=== PATIENT | male | born 1945 | race Caucasian/White ===

== ENCOUNTER → 2021-07-04 10:13 | Outpatient (BNVA) | payer OTHER, MEDICARE, SELFPAY | PROVIDERS: Visit Provider Urology | DX: C61 Malignant neoplasm of prostate (principal) ==

== ENCOUNTER → 2021-08-30 10:55 | Outpatient (BNVA) | payer OTHER, MEDICARE, SELFPAY | PROVIDERS: Visit Provider Urology ==

== ENCOUNTER 2022-03-12 11:57 | Outpatient (REF) | payer MEDICARE, OTHER, SELFPAY | END 2022-03-12 11:58 | disposition home or self-care (01) | LOC: HO.LAB 11:57 | PROVIDERS: Visit Provider Urology | DX: Z13.89 Encounter for screening for other disorder (principal) ==

== ENCOUNTER → 2022-03-15 10:21 | Outpatient (BNVA) | payer MEDICARE, OTHER, SELFPAY | PROVIDERS: Visit Provider Urology | DX: C61 Malignant neoplasm of prostate (principal); N48.1 Balanitis | CPT/HCPCS: 99212 ==

== ENCOUNTER → 2023-03-19 11:22 | Outpatient (BNVA) | payer MEDICARE, OTHER, SELFPAY | PROVIDERS: PCP Family Medicine; Visit Provider Urology | DX: C61 Malignant neoplasm of prostate (principal); N52.9 Male erectile dysfunction, unspecified | CPT/HCPCS: 99212 ==

== ENCOUNTER 2024-03-17 11:28 | Outpatient (AMB) | payer MEDICARE, OTHER, SELFPAY ==
--- NOTE | 2024-03-17 11:41 | A.OFFVIS_ITS ---
Intake Visit Reasons: 1Y PSA(set) Intake Note: Patient is Present for Follow Up PSA Urology Medication: None Antibiotic Allergies: None Blood Thinners: None Allergies No Known Allergies Allergy (Verified 03/17/24 11:44) Medication List - Last Reconciled 03/17/24 by Wiliam Garcia MD atorvastatin 80 mg PO DAILY clotrimazole-betamethasone 1-0.05 % 1 appl topical BID 4 weeks clotrimazole-betamethasone 1-0.05 % 1 appl topical BID 4 weeks ezetimibe 10 mg PO DAILY qirupjzjzxe-wrlmopjhs-madpbjtf 100-62.5-25 mcg (Trelegy Ellipta) 1 ea inhalation BEDTIME hydrochlorothiazide 12.5 mg PO DAILY metformin ER 500 mg PO DAILY montelukast 10 mg PO DAILY mupirocin 2% 1 appl topical TID omeprazole 80 mg PO DAILY valsartan 320 mg PO DAILY HPI Comments Details: Luc is a very pleasant male. He is a patient of Dr. Garza. He is seen for the following urologic conditions - prostate cancer - zoon balanitis Twelve month follow-up PSA remains undetectable Occasional leakage with cough Discussed Kegel exercises Continue surveillance Prostate cancer:? Favorable intermediate treatment with robotic prostatectomy 2014 Currently undergoing yearly surveillance ? Prostate cancer was diagnosed?June 2015 - Dr Garcia.? Diagnosis was reached by?needle biopsy, for elevated PSA.? The Ariana grade is?3+4.? TNM Classification of Malignant Tumours (TNM)?T2b.? The D'Bhavna (NCCN) risk category is?Intermediate Risk (PSA 10-20, Gl 7, T2).? Initial therapy included?Robotic prostatectomy mid 2014 - Negative margins. Negative seminal vesicles. Negative lymph nodes. Post procedure recurrence free survival 98% 5 years, 97% at 10 years. ? Recent labs included?a PSA (prostate-specific antigen) September 2015 0, December 2015 < 0.1, April 2016 < 0.1, Aug 2016 < 0.1, ?December 2016 , < 0.1, May 2017 < 0.1,?12/22 < 0.1, 06/24 < 0.1, 12/23 < 0.1, 06/25 < 0.1. ?11/26 < 0.1, 06/26 < 0.1, 06/27 <0.1, 03/28 <0.1, 01/28 <0.1 ? Associated conditions ? erectile dysfunction ?Yes ? hematuria ?No ? hot flashes ?No ? incontinence ?No minimal leak with cough - happy with QOL Prior episode of sulcal balanitis it appeared consistent with Zoons. Good response to muripicin. [facility] Medical History Inguinal hernia GERD (gastroesophageal reflux disease) Asthma HTN (hypertension) Erectile dysfunction Prostate cancer Surgical History History of surgery Social History Alcohol intake: never Patient Tobacco Use Status: Never used Tobacco Review of Systems Const Denies chills and Denies fever(s) Card Reports no additional complaints and Denies syncope Resp Denies cough GI Denies abdominal pain and Denies heartburn Reports as per HPI and Denies change in libido Neuro Denies syncope Psych Denies change in libido Endo Denies change in libido Physical Exam Const General: cooperative, healthy appearing, comfortable and no acute distress Orientation/consciousness: patient oriented x3 HEENT Face and sinus: Yes normal facial exam Mouth: moist mucous membranes Neck Neck: Yes normal visual inspection, Yes full ROM and Yes trachea midline Chest Chest palpation & inspection: normal inspection of the chest Resp Effort & Inspection: normal respiratory effort, able to speak in complete sentences and no respiratory distress GI Inspection: Yes normal to inspection Back/Spine/Pelvis Cervical Spine: normal cervical lordosis Thoracic/Lumbar Spine: thoracic and lumbar spine normal to inspection Skin General skin exam: no rashes or lesions noted Neuro General: patient oriented x3, gait normal, tone normal and moves all extremities Extrem General: Yes normal to inspection and Yes capillary refill normal Assessment & Plan Assessment & Plan (1) Balanitis: Code(s): N48.1 - Balanitis Category: Medical (2) Erectile dysfunction: Code(s): N52.9 - Male erectile dysfunction, unspecified Category: Medical (3) Prostate cancer: Comment: June 2015 favorable intermediate disease. Initial therapy radical prostatectomy Code(s): C61 - Malignant neoplasm of prostate Category: Medical Plan Twelve month follow-up PSA Orders: Orders Prostate Specific Antigen 364 Days C61 - Malignant neoplasm of prostate Patient Instructions: Imaging studies, laboratory and physical exam results were discussed and reviewed in detail. No major barriers to patient understanding were identified. An opportunity to ask questions regarding the treatment plan was provided. All questions were answered. The patient expressed understanding and agreement with the above treatment plan. The patient is aware they should contact our office by phone for worsening of their current condition or the appearance of new urologic symptoms. Compliance is encouraged with any medications and followup testing that is ordered. It is a privilege to participate in the urologic care of your patient. If you have any questions or concerns regarding treatment for the above conditions, or other urologic issues, please do not hesitate to contact me. The office telephone contact is [phone]. This note is constructed using voice recognition software. While every effort has been made to ensure accuracy calender wind up tender errors may have been included. Yours sincerely, Dr Wiliam Garcia MD, PATTI [facility] - Urology Providers of Expert, Compassionate Care for the Genitourinary System Coding Level of Care Code Est Pt Level 4 (17116) Diagnoses Balanitis N48.1 Erectile dysfunction N52.9 Prostate cancer C61
== END 2024-03-17 12:50 | disposition home or self-care (01) ==
PROVIDERS: PCP Family Medicine; Visit Provider Urology
DX: N48.1 Balanitis (principal); N52.9 Male erectile dysfunction, unspecified; C61 Malignant neoplasm of prostate
CPT/HCPCS: 99214

== ENCOUNTER → 2024-03-17 11:28 | Outpatient (BNVA) | payer MEDICARE, OTHER, SELFPAY | PROVIDERS: PCP Family Medicine; Visit Provider Urology | DX: C61 Malignant neoplasm of prostate (principal); N48.1 Balanitis; N52.1 Erectile dysfunction due to diseases classified elsewhere; Z90.79 Acquired absence of other genital organ(s) | CPT/HCPCS: 99212 ==

== ENCOUNTER 2025-03-17 13:50 | Outpatient (AMB) | payer MEDICARE, OTHER, SELFPAY ==
--- NOTE | 2025-03-17 13:50 | MHC.OFFVIS ---
Intake Visit Reasons: 1YR/PSA Intake Note: Patient is present for 1Y/PSA Urology Medication:NONE Antibiotic Allergy:NONE Blood Thinner:NONE Fur Comber Required: No Allergies No Known Allergies Allergy (Verified 03/17/25 13:52) Medication List - Last Reconciled 03/17/25 by Wiliam Garcia MD atorvastatin 80 mg PO DAILY ezetimibe 10 mg PO DAILY qvwimpnwuba-gypqiuflk-jgudauwx 100-62.5-25 mcg (Trelegy Ellipta) 1 ea inhalation BEDTIME hydrochlorothiazide 12.5 mg PO DAILY metformin ER 500 mg PO DAILY montelukast 10 mg PO DAILY mupirocin 2% 1 appl topical TID omeprazole 80 mg PO DAILY valsartan 320 mg PO DAILY HPI Comments Details: Luc is a very pleasant male. He is a patient of Dr. Garza. He is seen for the following urologic conditions - prostate cancer - zoon balanitis Telemedicine Evaluation 15 min Consultation [employer] Yearly followup PSA remains undetectable Occasional leakage with cough Discussed Kegel exercises Continue surveillance Did request a refill of muripicin Prostate cancer:? Favorable intermediate treatment with robotic prostatectomy 2014 Currently undergoing yearly surveillance ? Prostate cancer was diagnosed?June 2015 - Dr Garcia.? Diagnosis was reached by?needle biopsy, for elevated PSA.? The Acme grade is?3+4.? TNM Classification of Malignant Tumours (TNM)?T2b.? The D'Bhavna (NCCN) risk category is?Intermediate Risk (PSA 10-20, Gl 7, T2) ? Initial therapy included?Robotic prostatectomy mid 2014 - Negative margins. Negative seminal vesicles. Negative lymph nodes. Post procedure recurrence free survival 98% 5 years, 97% at 10 years. ? Recent labs included?a PSA (prostate-specific antigen) September 2015 0, December 2015 < 0.1, April 2016 < 0.1, Aug 2016 < 0.1, ?December 2016 , < 0.1, May 2017 < 0.1,?12/22 < 0.1, 06/24 < 0.1, 12/23 < 0.1, 06/25 < 0.1. ?11/26 < 0.1, 06/26 < 0.1, 06/27 <0.1, 03/28 <0.1, 01/28 <0.1, 02/28 0.08 ? Associated conditions ? erectile dysfunction ?Yes ? hematuria ?No ? hot flashes ?No ? incontinence ?No minimal leak with cough - happy with QOL Prior episode of sulcal balanitis it appeared consistent with Zoons. Good response to muripicin. [facility] Medical History Inguinal hernia GERD (gastroesophageal reflux disease) Asthma HTN (hypertension) Erectile dysfunction Prostate cancer Surgical History History of surgery Social History Alcohol intake: never Patient Tobacco Use Status: Never used Tobacco Review of Systems Const All systems reviewed & are unremarkable except as noted in HPI and below Reports no additional complaints Card Reports no additional complaints and Denies syncope Resp Reports no additional complaints GI Reports no additional complaints Reports as per HPI and Denies change in libido Musc Reports no additional complaints Neuro Denies syncope Psych Denies change in libido Endo Denies change in libido Physical Exam Telemedicine evaluation Appropriate responses Regular breathing rate and rhythm Const General: cooperative, healthy appearing, comfortable and no acute distress Orientation/consciousness: patient oriented x3 HEENT Head: Yes normal to inspection Ears: hearing grossly normal bilaterally Face and sinus: Yes normal facial exam Mouth: moist mucous membranes Eyes General: appearance normal, both eyes and all related structures Neck Neck: Yes normal visual inspection Chest Chest palpation & inspection: normal inspection of the chest Resp Effort & Inspection: normal respiratory effort and able to speak in complete sentences GI Inspection: Yes normal to inspection Back/Spine/Pelvis Cervical Spine: normal cervical lordosis Thoracic/Lumbar Spine: thoracic and lumbar spine normal to inspection Skin General skin exam: no rashes or lesions noted Neuro General: patient oriented x3, gait normal, tone normal and moves all extremities Extrem General: Yes normal to inspection and Yes capillary refill normal Telehealth Telehealth Location of provider rendering services: practice address Location of patient: address on file Patient Identification confirmed using: Name, : Yes Telehealth method: voice only Patient verbally consented to treatment: Yes Patient verbally consented to billing insurance company: Yes Patient informed of any privacy concerns related to visit: Yes Assessment & Plan Assessment & Plan (1) Balanitis: Code(s): N48.1 - Balanitis Category: Medical (2) Prostate cancer: Comment: June 2015 favorable intermediate disease. Initial therapy radical prostatectomy Code(s): C61 - Malignant neoplasm of prostate Category: Medical Plan Twelve month follow-up PSA Orders: Orders Prostate Specific Antigen 12 Months C61 - Malignant neoplasm of prostate Medications: Refilled mupirocin 2% thin coat to affected area 3x a day for 2 weeks 1 appl topical TID 15 grams 0RF N48.1 - Balanitis Patient Instructions: This note is constructed using voice recognition software. While every effort has been made to ensure accuracy bilingual interpreter errors may have been included. Imaging studies, laboratory and physical exam results were discussed and reviewed in detail. No major barriers to patient understanding were identified. An opportunity to ask questions regarding the treatment plan was provided. All questions were answered. The patient expressed understanding and agreement with the above treatment plan. The patient is aware they should contact our office by phone for worsening of their current condition or the appearance of new urologic symptoms. Compliance is encouraged with any medications and followup testing that is ordered. It is a privilege to participate in the urologic care of your patient. If you have any questions or concerns regarding treatment for the above conditions, or other urologic issues, please do not hesitate to contact me. The office telephone contact is [phone]. Sincerely, Dr Wiliam Garcia MD, PATTI [facility] - Urology Compassionate Specialist Care for the Genitourinary System Coding Level of Care Code Tele Est Pt Level 4 (64378) Complex EM visit Add On G2211 Diagnoses Balanitis N48.1 Prostate cancer C61
== END 2025-03-17 14:23 | disposition home or self-care (01) ==
LOC: HO.HUSH 13:50
PROVIDERS: PCP Family Medicine; Visit Provider Urology
DX: N48.1 Balanitis (principal); C61 Malignant neoplasm of prostate
CPT/HCPCS: 99214; G2211

== ENCOUNTER → 2025-03-17 13:50 | Outpatient (BNVA) | payer MEDICARE, OTHER, SELFPAY | PROVIDERS: PCP Family Medicine; Visit Provider Urology | DX: Z13.89 Encounter for screening for other disorder (principal) ==